=== PATIENT | female | born 1995 | race Caucasian/White ===

== ENCOUNTER 2017-09-20 02:15 | Emergency (ER) | payer OTHER ==
[~2017-09-20] VITALS: Ht 167.6 cm; Wt 82.0 kg
[2017-09-20 02:29] VITALS: TEMP 36.4; Ht 167.6 cm; Wt 82.0 kg
[2017-09-20] MEDS ORDERED: BCPILLS PO (03:02)
[2017-09-20 03:29] LABS: CALCIUM 8.5 mg/dl (8.5-10.1); CREATININE 0.66 mg/dl (0.60-1.20); POTASSIUM 3.9 mmol/L (3.5-5.1)
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
[2017-09-20 07:55] VITALS: BP 112/65; PULSE 98; O2SAT 100
== END 2017-09-20 08:06 | disposition home or self-care (01) ==
LOC: C.EDB 02:16
DX: T51.0X1A Toxic effect of ethanol, accidental (unintentional), initial encounter (principal); Z79.3 Long term (current) use of hormonal contraceptives

== ENCOUNTER 2017-12-27 17:03 | Emergency (ER) | payer BC, OTHER ==
[~2017-12-27] VITALS: Ht 165.1 cm; Wt 85.3 kg
[~2017-12-27 17:03] MED LIST: BCPILLS PO
[2017-12-27 17:20] VITALS: TEMP 37.3; Ht 165.1 cm; Wt 85.3 kg
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
[2017-12-27 18:12] VITALS: BP 104/70; PULSE 93; O2SAT 99
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
== END 2017-12-27 18:22 | disposition home or self-care (01) ==
LOC: EDBD 17:03 → C.EDC 17:04
DX: S06.0X0A Concussion without loss of consciousness, initial encounter (principal); S01.511A Laceration without foreign body of lip, initial encounter; S51.012A Laceration without foreign body of left elbow, initial encounter; V49.40XA Driver injured in collision with unspecified motor vehicles in traffic accident, initial encounter; R40.2412 Glasgow coma scale score 13-15, at arrival to emergency department; Z79.3 Long term (current) use of hormonal contraceptives